=== PATIENT | female | born 2000 | race Two or more races ===

== ENCOUNTER 2019-01-05 16:23 | Inpatient (IN) ==
[2019-01-05 17:50] LABS: Appearance Urine Clear (Clear); Bacteria Urine Automated Negative (Negative); Bilirubin Urine Negative (Negative); Blood Urine Trace (Negative); Cast Urine Automated 0 /lpf (0-5); Color Urine Yellow; Glucose Urine UA Negative (Negative); Ketones Urine 1+ (Negative); Leukocyte Esterase Urine Negative (Negative); Nitrite Urine Negative (Negative); Protein Urine Negative (Negative); RBC Urine Automated 0-4 /hpf (0-4); Specific Gravity Urine 1.017 (1.000-1.030); Urobilinogen Urine Negative (Negative); WBC Urine Automated 0 /hpf (0-5)
[2019-01-05 18:18] LABS: Amphetamines+Metham, Urine Neg (Neg); Barbiturates, Urine Neg (Neg); Benzodiazepine, Urine Neg (Neg); Cocaine, Urine Neg (Neg); MDMA (Ecstacy), Urine Neg (Neg); Methadone, Urine Neg (Neg); Opiate, Urine Neg (Neg); Phencyclidine, Urine Neg (Neg)
[2019-01-05 18:21] LABS: Basophils # (auto) 0.02 K/uL (0-0.2); Basophils % (auto) 0.3 %; Eosinophils # (auto) 0.03 K/uL (0-0.5); Eosinophils % (auto) 0.4 %; Hematocrit (blood only) 40.1 % (37-47); Hemoglobin 14.1 g/dL (12.0-16.0); Immature Granulocytes # (auto) 0.01 K/uL (0.00-0.02); Immature Granulocytes % (auto) 0.1 %; Lymphocytes # (auto) 1.04 K/uL (1.2-3.4); Mean Corpuscular Hgb Conc 35.2 g/dL (32-36); Mean Corpuscular Volume 90.1 fL (80-100); Mean Platelet Volume 10.9 fL (7.4-10.4); Monocytes # (auto) 0.47 K/uL (0.11-0.59); Monocytes % (auto) 6.3 %; Neutrophils # (auto) 5.88 K/uL (1.4-6.5); Neutrophils % (auto) 78.9 %; Platelet Count 194 K/uL (130-400); RDW Coefficient of Variation 13.1 % (11.5-14.5); RDW Standard Deviation 43.5 fL (36.4-46.3); Red Blood Count 4.45 M/uL (4.2-5.4); White Blood Count 7.45 K/uL (4.8-10.8)
[2019-01-05 18:41] LABS: Acetaminophen < 2 ug/ml (10-30); Albumin Level 4.5 gm/dl (3.4-5.0); BUN Creatinine Ratio 12.3 (10-20); Calcium 9.6 mg/dl (8.5-10.1); Est GFR (African American) 99.9; Est GFR (Non-African American) 86.2; Potassium 3.8 mmol/L (3.5-5.1)
[2019-01-05 18:42] LABS: Salicylate 2.1 mg/dl (2.8-20)
[2019-01-05 18:51] LABS: Albumin Globulin Ratio 1.1 (0.9-2); Bilirubin,Total 0.3 mg/dl (0.2-1); Total Protein 8.5 gm/dl (6.4-8.2)
--- NOTE | 2019-01-05 19:55 | Emergency Department Note ---
Entered by Rashi Bonilla acting as a scribe for Sundeep Johnson DO History of Present Illness General Chief complaint: Mental Health Evaluation Stated complaint: DEPRESSION SX Source: patient Limitations: no limitations History of Present Illness Provider complaint: suicidal ideation Onset (ago): year(s) (2) Location: head (mental health) Pain Consistency: + other (worsening) Quality: + other (suicidal thoughts) Associated symptoms: + denies other symptoms Treatments prior to arrival: none The patient is a 18 year old female who presents to the Emergency Room with complaints of worsening suicidal ideations. The patient states that she has been dealing with depression and suicidal ideation for the past 6 years. She feels as though her suicidal thoughts have worsened over the past 2 years. She states that she "does not want to exist" and "doesn't want to be here." The patient confirms that she has never acted on her thoughts, but recently the thoughts and depression had "inhibited my daily function." She admits that she has been researching ways to kill herself on line. The patient adds that she read that she could inhale a gas in the chemistry lab that would kill her painlessly in her sleep, and she also researched overdosing on narcotics. She has thought about overdosing on narcotics in the past 3 days. The patient denies any homicidal ideations or hallucinations. Home Medications Home Medications Medication Instructions Recorded Confirmed Type No Known Home Medications 01/05/19 01/05/19 History Allergies Allergy/AdvReac Type Severity Reaction Status Date / Time No Known Allergies Allergy Unverified 01/05/19 17:18 Past Med/Surg History Medical History Depression Social History Feels Safe at Home: Yes Smoking Status: Never smoker Review of Systems See HPI for pertinent positives & negatives. and A total of 10 systems reviewed and were otherwise negative Physical Exam Vital Signs Vital Signs - 24 hr 01/05/19 17:01 01/05/19 18:19 Temperature 37 C Temperature Source Oral Sepsis Recent Fever Within 48 Hours No Sepsis Action Taken by Nursing No Action Required Pulse Rate 87 Pulse Rate [Finger] 71 Pulse Rhythm [Finger] Regular Respiratory Rate 16 18 Respiratory Effort / Characteristics Non-Labored Respiratory Depth Normal Blood Pressure 125/78 Blood Pressure [Left Arm] 114/60 Blood Pressure Mean 93 Blood Pressure Mean [Left Arm] 78 Blood Pressure Position Sitting Pulse Oximetry 97 95 Oxygen Delivery Method Room Air Room Air GENERAL: Sitting up in bed, alert, well appearing, well nourished, no distress, non-toxic EYE EXAM: normal conjunctiva. OROPHARYNX: no exudate, no erythema, lips, buccal mucosa, and tongue normal and mucous membranes are moist NECK: supple, no nuchal rigidity, no adenopathy, non-tender LUNGS: Clear to auscultation. Normal chest wall mechanics HEART: no murmurs, S1 normal and S2 normal ABDOMEN: abdomen soft, non-tender, normo-active bowel, sounds, no masses, no rebound or guarding. BACK: Back is symmetrical on inspection and there is no deformity, no midline tenderness, no CVA tenderness. SKIN: no rashes and no bruising UPPER EXTREMITIES: upper extremities are grossly normal. LOWER EXTREMITIES: No pitting edema. NEURO EXAM: Normal sensorium, cranial nerves II-XII grossly intact, normal speech, no gross weakness of arms, no gross weakness of legs. PSYCH: Admits to suicidal ideation with plan to overdose or inhale gas. Course ED COURSE: Vital signs were reviewed and showed normal vitals. The patients medical record was reviewed The above diagnostic studies were performed and reviewed. ED treatments and interventions as stated above. 1722: The patient was evaluated in room A8. A complete history and physical examination was performed. []: Upon reevaluation, the patient is []. I discussed my findings with the [patient] and [] understands and agrees with the treatment plan. Based on the patients age, coexisting illnesses, exam and lab findings the decision to treat as an [inpatient][outpatient] was made. The patient remained stable while under my care. [The patient appeared well at the time of discharge.] [The patient will be evaluated for further management.] Medical Decision Making Differential Diagnosis Differential diagnosis: Etiologies such as psychiatric disorder, infection, hypoglycemia, electrolyte abnormalities, cardiac sources, intracerebral event, toxicological process, neurologic disorder, as well as others were entertained. Medical Records Attestation: I reviewed the patient's medical records. Home Medications Current Medication List: was personally reviewed by me Laboratory Data Attestation: I reviewed the patient's lab results. Result diagrams: 01/05/19 17:55 01/05/19 17:55 Lab Results 01/05/19 01/05/19 01/05/19 Range/Units 17:29 17:29 17:29 WBC (4.8-10.8) K/uL RBC (4.2-5.4) M/uL Hgb (12.0-16.0) g/dL Hct (37-47) % MCV (80-100) fL MCH (25-34) pg MCHC (32-36) g/dL RDW Std Deviation (36.4-46.3) fL RDW Coeff of Lida (11.5-14.5) % Plt Count (130-400) K/uL MPV (7.4-10.4) fL Immature Gran % (Auto) % Neut % (Auto) % Lymph % (Auto) % [place] % (Auto) % Eos % (Auto) % Baso % (Auto) % Immature Gran # (Auto) (0.00-0.02) K/uL Neut # (Auto) (1.4-6.5) K/uL Lymph # (Auto) (1.2-3.4) K/uL [place] # (Auto) (0.11-0.59) K/uL Eos # (Auto) (0-0.5) K/uL Baso # (Auto) (0-0.2) K/uL Sodium (136-145) mmol/L Potassium (3.5-5.1) mmol/L Chloride (98-107) mmol/L Carbon Dioxide (21-32) mmol/L Anion Gap (3-11) BUN (7-18) mg/dl Creatinine (0.6-1.2) mg/dl Est Cr Clr Drug Dosing ml/min Est GFR ( Amer) Est GFR (Non-Af Amer) BUN/Creatinine Ratio (10-20) Glucose (70-99) mg/dl Calcium (8.5-10.1) mg/dl Total Bilirubin (0.2-1) mg/dl AST (15-37) U/L ALT (12-78) U/L Alkaline Phosphatase (45-117) U/L Total Protein (6.4-8.2) gm/dl Albumin (3.4-5.0) gm/dl Globulin (2.5-4.0) gm/dl Albumin/Globulin Ratio (0.9-2) TSH (0.300-4.500) uIu/ml Urine Color Yellow Urine Appearance Clear (Clear) Urine pH 6.0 (4.5-7.5) Ur Specific [place] 1.017 (1.000-1.030) Urine Protein Negative (Negative) Urine Glucose (UA) Negative (Negative) Urine Ketones 1+ H (Negative) Urine Blood Trace H (Negative) Urine Nitrite Negative (Negative) Urine Bilirubin Negative (Negative) Urine Urobilinogen Negative (Negative) Ur Leukocyte Esterase Negative (Negative) Urine WBC (Auto) 0 (0-5) /hpf Urine RBC (Auto) 0-4 (0-4) /hpf U Hyaline Cast (Auto) 0 (0-5) /lpf U Epithel Cells (Auto) 10-20 H (0-5) /lpf Urine Bacteria (Auto) Negative (Negative) POC Ur Test NEG (NEG) Salicylates (2.8-20) mg/dl Urine Opiates Screen Neg (Neg) Ur Methadone, Qual Neg (Neg) Acetaminophen (10-30) ug/ml Urine Barbiturates Neg (Neg) Ur Phencyclidine (PCP) Neg (Neg) U Amphetamin/Meth Scrn Neg (Neg) MDMA (Ecstasy) Screen Neg (Neg) U Benzodiazepines Scrn Neg (Neg) Ur Cocaine Metabolite Neg (Neg) U Marijuana (THC) Screen Neg (Neg) Ethyl Alcohol mg/dL (0-3) mg/dl 01/05/19 01/05/19 01/05/19 Range/Units 17:55 17:55 17:55 WBC 7.45 (4.8-10.8) K/uL RBC 4.45 (4.2-5.4) M/uL Hgb 14.1 (12.0-16.0) g/dL Hct 40.1 (37-47) % MCV 90.1 (80-100) fL MCH 31.7 (25-34) pg MCHC 35.2 (32-36) g/dL RDW Std Deviation 43.5 (36.4-46.3) fL RDW Coeff of Lida 13.1 (11.5-14.5) % Plt Count 194 (130-400) K/uL MPV 10.9 H (7.4-10.4) fL Immature Gran % (Auto) 0.1 % Neut % (Auto) 78.9 % Lymph % (Auto) 14.0 % [place] % (Auto) 6.3 % Eos % (Auto) 0.4 % Baso % (Auto) 0.3 % Immature Gran # (Auto) 0.01 (0.00-0.02) K/uL Neut # (Auto) 5.88 (1.4-6.5) K/uL Lymph # (Auto) 1.04 L (1.2-3.4) K/uL [place] # (Auto) 0.47 (0.11-0.59) K/uL Eos # (Auto) 0.03 (0-0.5) K/uL Baso # (Auto) 0.02 (0-0.2) K/uL Sodium 139 (136-145) mmol/L Potassium 3.8 (3.5-5.1) mmol/L Chloride 109 H (98-107) mmol/L Carbon Dioxide 23 (21-32) mmol/L Anion Gap 7.0 (3-11) BUN 12 (7-18) mg/dl Creatinine 0.95 (0.6-1.2) mg/dl Est Cr Clr Drug Dosing 85.0 ml/min Est GFR ( Amer) 99.9 Est GFR (Non-Af Amer) 86.2 BUN/Creatinine Ratio 12.3 (10-20) Glucose 85 (70-99) mg/dl Calcium 9.6 (8.5-10.1) mg/dl Total Bilirubin 0.3 (0.2-1) mg/dl AST 20 (15-37) U/L ALT 17 (12-78) U/L Alkaline Phosphatase 48 (45-117) U/L Total Protein 8.5 H (6.4-8.2) gm/dl Albumin 4.5 (3.4-5.0) gm/dl Globulin 4.0 (2.5-4.0) gm/dl Albumin/Globulin Ratio 1.1 (0.9-2) TSH 1.240 (0.300-4.500) uIu/ml Urine Color Urine Appearance (Clear) Urine pH (4.5-7.5) Ur Specific [place] (1.000-1.030) Urine Protein (Negative) Urine Glucose (UA) (Negative) Urine Ketones (Negative) Urine Blood (Negative) Urine Nitrite (Negative) Urine Bilirubin (Negative) Urine Urobilinogen (Negative) Ur Leukocyte Esterase (Negative) Urine WBC (Auto) (0-5) /hpf Urine RBC (Auto) (0-4) /hpf U Hyaline Cast (Auto) (0-5) /lpf U Epithel Cells (Auto) (0-5) /lpf Urine Bacteria (Auto) (Negative) POC Ur Test (NEG) Salicylates 2.1 L (2.8-20) mg/dl Urine Opiates Screen (Neg) Ur Methadone, Qual (Neg) Acetaminophen < 2 L (10-30) ug/ml Urine Barbiturates (Neg) Ur Phencyclidine (PCP) (Neg) U Amphetamin/Meth Scrn (Neg) MDMA (Ecstasy) Screen (Neg) U Benzodiazepines Scrn (Neg) Ur Cocaine Metabolite (Neg) U Marijuana (THC) Screen (Neg) Ethyl Alcohol mg/dL (0-3) mg/dl 01/05/19 Range/Units 17:55 WBC (4.8-10.8) K/uL RBC (4.2-5.4) M/uL Hgb (12.0-16.0) g/dL Hct (37-47) % MCV (80-100) fL MCH (25-34) pg MCHC (32-36) g/dL RDW Std Deviation (36.4-46.3) fL RDW Coeff of Lida (11.5-14.5) % Plt Count (130-400) K/uL MPV (7.4-10.4) fL Immature Gran % (Auto) % Neut % (Auto) % Lymph % (Auto) % [place] % (Auto) % Eos % (Auto) % Baso % (Auto) % Immature Gran # (Auto) (0.00-0.02) K/uL Neut # (Auto) (1.4-6.5) K/uL Lymph # (Auto) (1.2-3.4) K/uL [place] # (Auto) (0.11-0.59) K/uL Eos # (Auto) (0-0.5) K/uL Baso # (Auto) (0-0.2) K/uL Sodium (136-145) mmol/L Potassium (3.5-5.1) mmol/L Chloride (98-107) mmol/L Carbon Dioxide (21-32) mmol/L Anion Gap (3-11) BUN (7-18) mg/dl Creatinine (0.6-1.2) mg/dl Est Cr Clr Drug Dosing ml/min Est GFR ( Amer) Est GFR (Non-Af Amer) BUN/Creatinine Ratio (10-20) Glucose (70-99) mg/dl Calcium (8.5-10.1) mg/dl Total Bilirubin (0.2-1) mg/dl AST (15-37) U/L ALT (12-78) U/L Alkaline Phosphatase (45-117) U/L Total Protein (6.4-8.2) gm/dl Albumin (3.4-5.0) gm/dl Globulin (2.5-4.0) gm/dl Albumin/Globulin Ratio (0.9-2) TSH (0.300-4.500) uIu/ml Urine Color Urine Appearance (Clear) Urine pH (4.5-7.5) Ur Specific [place] (1.000-1.030) Urine Protein (Negative) Urine Glucose (UA) (Negative) Urine Ketones (Negative) Urine Blood (Negative) Urine Nitrite (Negative) Urine Bilirubin (Negative) Urine Urobilinogen (Negative) Ur Leukocyte Esterase (Negative) Urine WBC (Auto) (0-5) /hpf Urine RBC (Auto) (0-4) /hpf U Hyaline Cast (Auto) (0-5) /lpf U Epithel Cells (Auto) (0-5) /lpf Urine Bacteria (Auto) (Negative) POC Ur Test (NEG) Salicylates (2.8-20) mg/dl Urine Opiates Screen (Neg) Ur Methadone, Qual (Neg) Acetaminophen (10-30) ug/ml Urine Barbiturates (Neg) Ur Phencyclidine (PCP) (Neg) U Amphetamin/Meth Scrn (Neg) MDMA (Ecstasy) Screen (Neg) U Benzodiazepines Scrn (Neg) Ur Cocaine Metabolite (Neg) U Marijuana (THC) Screen (Neg) Ethyl Alcohol mg/dL < 3.0 (0-3) mg/dl Blood Pressure Blood Pressure Findings: Normal blood pressure [facility] Narrative Patient is a 18-year-old female who presents the ER with a past medical history of depression which is been present for the past 6 years. Suicidal ideations have been worsening over the past 2 years. Thoughts of self-harm have been significantly worsening over the past week. She has been having inability to focus. She now notes that the suicidal thoughts are persistent and unrelenting. She has researched ways which she would kill herself which include by narcotic overdose or gas inhalation. She notes that she did the research on this for 5 months ago but these to have stuck in her mind. Labs were obtained and showed no significant leukocytosis or anemia. BMP along with LFTs bilirubin and TSH was unremarkable. UA was negative. Tox was unremarkable. Alcohol was negative. Patient was medically cleared. She was updated bedside. Currently bed searching after patient was evaluated by her psychiatric care managers. Patient was signed out to Dr. Be at the change of shift awaiting placement on a 201. Impression & Plan Mood disorder, Suicidal ideation Discharge Plan Visit Data Chief Complaint: Mental Health Evaluation Stated Complaint: DEPRESSION SX ED Provider: Sundeep Johnson Discharge Problem: Mood disorder, Suicidal ideation Patient Disposition: Still a Patient Forms Stand Alone Forms: My [facility] Prescriptions Prescriptions: No Action No Known Home Medications RF: 0 Referrals Referrals: [facility] [Primary Care Provider] - The scribe's documentation has been prepared under my direction and personally reviewed by me in its entirety. I confirm that the note above accurately reflects all work, treatment, procedures, and medical decision making performed by me.
[2019-01-05] MEDS ORDERED: SODIUM CHLORIDE 0.65% NA SOLN 45 ML (OCEAN) PRN (21:12)
[2019-01-05] MEDS ORDERED: ACETAMINOPHEN 325 MG TAB PO PRN (21:12)
[2019-01-05] MEDS ORDERED: ALUMINUM/MAGNESIUM SUSP 30 ML UDC PO PRN (21:12)
[2019-01-05] MEDS ORDERED: BISMUTH SUBSALICYLATE PER ML OMNICELL CHARGE PO PRN (21:12)
[2019-01-05] MEDS ORDERED: MAGNESIUM HYDROXIDE SUSP 30 ML UDC PO PRN (21:12)
[2019-01-06] MEDS ORDERED: INFLUENZA VIRUS QUAD VACCINE 0.5 ML SYR IM ONE (06:00)
[2019-01-06] MEDS ORDERED: INFLUENZA ADMINISTRATION CHARGE ONE (06:00)
--- NOTE | 2019-01-06 09:05 | History & Physical ---
Date of Service January 06, 2019 Impression / Recommendations Impression 18-year-old female admitted voluntarily for inpatient psychiatric treatment due to worsening depression and SI. Recent SI and depressive episodes have been associated with patient completing research on ways in which she could end her life. Long history of symptoms is reported, however, patient has not received treatment previously. Pt attempted to contact [facility] several times, but would cancel appointments when she began to feel better. Discussed recommendation for initiation of antidepressant medications. Education and counseling provided on SSRIs and the different options were reviewed. Given disordered eating behaviors, suggested fluoxetine, which patient is agreeable with. Risks, benefits, and possible adverse effects were discussed - including but not limited to black box warning regarding risk of suicidality in the adolescent population. Pt is agreeable to beginning medication and is willing for a therapy referral. Inpatient mental health hospitalization is medically necessary given severity and duration of untreated illness and the fact that without intervention the patient remains at high risk of harm to herself is discharged prematurely. Dr. Xiomara Malcolm was directly involved in review and discussion of the patient's case and participated in medical decision making regarding treatment recommendations. (1) Suicidal ideation: 01/06 - Admitted to a locked inpatient behavioral health unit, on q15 minute safety checks - Encourage medication initiation/adjustments as indicated - Encourage participation in group and recreational therapies - Gather collateral information from outpatient providers - Suggest family meeting to involve outpatient supports in safety planning - Arrange appropriate aftercare (2) Depression: 01/06 - Initiate fluoxetine 20mg one dose now, 20mg qAM scheduled starting tomorrow morning. Titrate as needed/tolerated - Will need referral to outpatient providers following discharge - Identify supports to involve in treatment and discharge planning Depression Type: major depressive disorder Major depression episode severity: severe Major depression recurrence: recurrent Psychotic features: without psychotic features (3) Disordered eatin/28 - pt admits to several days of restriction at a time, associated with small windows of nutritional intake, often to the point of binging - observe eating habits on the unit with encouragement to eat regularly throughout the day - no recent history of purging, so will not order for room to be locked at this time Inventory Assets Strengths: willingness for treatment, Needs: medication and therapeutic interventions to improve mood, development of healthy and effective coping strategies Risk Factors Assessment Male: No : No Do You Have Access To A Gun?: No Health Problems: No Mental Health Diagnoses: No (none prior to admission) Substance Use Disorders: No Previous Attempt: No Family History of Suicide: No Previous Psychiatric Hospitalization: No Hopelessness: Yes Smoker: No Protective Factors Assessment Buddhism Beliefs: No : No Responsible for Young Children: No Employed: Yes Stable Relationships: No Supportive Family: Yes Psychiatric History Identifying Data ANN-MARIE CAO is a 18-year-old F who currently lives in [place], with her roommate. Pt has a history of depressive symptoms and suicidal ideation which has not been previously addressed, and was admitted on 01/05/19 21:12 on a 201 voluntary commitment for worsening depression and SI with various "painless" plans having been researched. Chief Complaint "Yesterday morning I decided to talk to [facility]. 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 Pt reports having called [facility] yesterday to report worsening depression and SI. After her initial assessment, an in person interview was completed. Pt was then encouraged to consider inpatient treatment due to severity of condition. Pt was agreeable and brought to the ED by police voluntarily. Pt states she has called [facility] for an appointment "5 times before", but had always cancelled her appointments due to "I start feeling better, I think I don't need it anymore." Pt states, "It went from only me knowing, keep ing it to myself, to two people, and now a lot more." Pt reports depressive symptoms for the past 6 years. The last 2 years her symptoms have become, "more consistent, more life concerning." Pt admits that for the past two years she has been researching ways to end her life painlessly. She admits to doing this "under the influence of my depressive episode." She denies any acts of furtherance before the depressive episode resolves. Pt states that her suicidality since the beginning of the school year has been "a consistent thought. I can be content and with my family or friends and still think, 'what if I wasn't here?'" Pt reports, "a normal mood for me is 'somber', it takes a catalyst for me to be happy." Pt reports depressive symptoms of low mood, decreased energy, limited motivation beyond going to classes, and increased desire to sleep and retreat to bed. She admits to more frequent headaches, difficulty concentrating and tension as well. During these episodes, the patient states she has "involuntary self harm behaviors" such has banging her head off of finnegan, using sharp tweezers to scratch her skin "but so it doesn't leave a yue", or choking herself until the point just prior to asphyxiation. Depressive episodes are accompanied by irritability and occasional hopelessness. Pt does not report symptoms consistent with a clear bipolar presentation, but does admit to "really rare" phases of "offering to do things for people and spreading myself too thin", excessive spending, and an episode of "signing up to join 3 intramural teams all on the same day." These phases last "maybe a few hours, but something really little always triggers me back down." Pt denies any clinically significant symptoms of anxiety or panic. She does report a significant history and active behaviors of "binging and starving myself". Pt states she is consistently on a diet to restrict herself - often for 2 days at a time, reporting her longest period of restriction to be 7 days. Pt states she takes "intermittent fasting to the extreme", often only eating between 6-8pm." When patient does permit herself to eat, she often binges with a large meal. She admits to a history of purging behavior, but with no episodes in the past year. Pt denies HI, A/V hallucinations, paranoia, OCD, PTSD, and other specific psychiatric symptoms. Past Psychiatric History Previous Psych History: Pt admits to a 6-year history of depressive symptoms, with worsening in the past 2 years. She has not reached out for, or received any form of psychiatric treatment. Appointments scheduled with [facility] were typically cancelled before she could become an established patient due to reported improvement in symptoms. She denies previous therapy or medication trials Current Psychiatric Diagnosis: Major Depressive Disorder Do You Have Access To A Gun?: No Past Medication Trials: No previous medication trials Past Head Trauma/Neuro History History of Concussion/Seizure: No Allergies Allergy/AdvReac Type Severity Reaction Status Date / Time No Known Allergies Allergy Unverified 01/05/19 17:18 Home Medications Home Medications Medication Instructions Recorded Confirmed Type No Known Home Medications 01/05/19 01/05/19 History Family History Family History of: Anxiety Family Mental Health History Comment: sister - anxiety and depersonalization disorder Alcohol History Hx of Alcohol Use Over the Past 12 Months: Yes (1x/week, 3-4 drinks "socially") AUDIT Total Score: 4 Smoking Use Have You Smoked or Used Tobacco Products in the Last 30 Days: No Smoking Status: Never smoker Substance History Hx of Prescription Med Misuse Over the Past 12 Months: No Hx of Over the Counter Med Misuse Over the Past 12 Months: No Hx of Inhalent Misuse Over the Past 12 Months: No Hx of Organic Substance Use Over the Past 12 Months: No Hx of Illegal Substances/Street Drug Use Over Past 12 Months: No Problems as a Result of Past Substance Use: None Identified Personal History Living Arrangements: APartment (with roommate) Childhood: Family resides in [place] - parents , younger sister in high school. Older brother currently attending medical school. 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) Number Of Children: N/A Beliefs That Will Affect Care: None Current Legal Problems: No Hx Legal Problems: No Hx Traumatic Life Events: No Patient History Medical History Depression Social History Preferred Language: Arabic Communication Ability: Effective Exchange Trouble Shooter Required: No Beliefs That Will Affect Care: None Feels Safe at Home: Yes Smoking Status: Never smoker Review of Systems Constitutional: reports fatigue and low energy Cardiovascular: denied Respiratory: denied Gastrointestinal: denied Neurological: reports frequent headaches Musculoskeletal: reports frequent neck tension Psychiatric: denies symptoms other than stated above Total of at least 10 systems reviewed, pertinent positives as above and in HPI. Physical Exam Psychiatric Orientation: alert, oriented x 3 and cooperative Apperance: appropriately dressed, appropriately groomed and appeared stated age Petite and thin appearing female, appropriately groomed, hair pulled back in a neat bun, wearing glasses. Observed to be sitting in no acute distress. Eye Contact: good eye contact Motor Behavior: steady gait and station and no abnormal motor movements Speech: normal rate/rhythm/volume of speech Affect: + depressed affect Mood: + depressed mood ("my normal mood would be 'somber'" and "in a bad depressive episode") Thought Process: goal directed thought process, linear/logical thought process and clear/coherent thought process Thought Content: reality based without delusions Suicidal Thoughts: + reports suicidal thoughts and + reports suicidal plan (has researched "painless" plans, including OD on narcotics or inhale gas) Homicidal Thoughts: denies homicidal thoughts Hallucinations: no auditory hallucinations and no visual hallucinations Cognition: recent memory grossly intact, remote memory grossly intact, attention grossly intact and language grossly intact Estimated Intelligence: consistent with education level Insight: + impaired insight Judgement: + impaired judgement Vital Signs (Past 24 Hours) Last Vital Signs Temp 36.8 C 01/06/19 07:02 Pulse 73 01/06/19 07:02 Resp 16 01/06/19 07:02 BP 124/73 01/06/19 07:02 Pulse Ox 95 01/05/19 18:19 A physical exam was performed in the ER prior to admission to the unit by Dr. Sundeep Johnson DO. I accept that physical as correct/medical clearance for the inpatient physical exam. Results & Data Laboratory Results Laboratory Results - last 24 hr 01/05/19 01/05/19 01/05/19 17:29 17:29 17:29 WBC RBC Hgb Hct MCV MCH MCHC RDW Std Deviation RDW Coeff of Lida Plt Count MPV Immature Gran % (Auto) Neut % (Auto) Lymph % (Auto) [place] % (Auto) Eos % (Auto) Baso % (Auto) Immature Gran # (Auto) Neut # (Auto) Lymph # (Auto) [place] # (Auto) Eos # (Auto) Baso # (Auto) Sodium Potassium Chloride Carbon Dioxide Anion Gap BUN Creatinine Est Cr Clr Drug Dosing Est GFR ( Amer) Est GFR (Non-Af Amer) BUN/Creatinine Ratio Glucose Calcium Total Bilirubin AST ALT Alkaline Phosphatase Total Protein Albumin Globulin Albumin/Globulin Ratio TSH Urine Color Yellow Urine Appearance Clear Urine pH 6.0 Ur Specific [place] 1.017 Urine Protein Negative Urine Glucose (UA) Negative Urine Ketones 1+ H Urine Blood Trace H Urine Nitrite Negative Urine Bilirubin Negative Urine Urobilinogen Negative Ur Leukocyte Esterase Negative Urine WBC (Auto) 0 Urine RBC (Auto) 0-4 U Hyaline Cast (Auto) 0 U Epithel Cells (Auto) 10-20 H Urine Bacteria (Auto) Negative POC Ur Test NEG Salicylates Urine Opiates Screen Neg Ur Methadone, Qual Neg Acetaminophen Urine Barbiturates Neg Ur Phencyclidine (PCP) Neg U Amphetamin/Meth Scrn Neg MDMA (Ecstasy) Screen Neg U Benzodiazepines Scrn Neg Ur Cocaine Metabolite Neg U Marijuana (THC) Screen Neg Ethyl Alcohol mg/dL 01/05/19 01/05/19 01/05/19 17:55 17:55 17:55 WBC 7.45 RBC 4.45 Hgb 14.1 Hct 40.1 MCV 90.1 MCH 31.7 MCHC 35.2 RDW Std Deviation 43.5 RDW Coeff of Lida 13.1 Plt Count 194 MPV 10.9 H Immature Gran % (Auto) 0.1 Neut % (Auto) 78.9 Lymph % (Auto) 14.0 [place] % (Auto) 6.3 Eos % (Auto) 0.4 Baso % (Auto) 0.3 Immature Gran # (Auto) 0.01 Neut # (Auto) 5.88 Lymph # (Auto) 1.04 L [place] # (Auto) 0.47 Eos # (Auto) 0.03 Baso # (Auto) 0.02 Sodium 139 Potassium 3.8 Chloride 109 H Carbon Dioxide 23 Anion Gap 7.0 BUN 12 Creatinine 0.95 Est Cr Clr Drug Dosing 85.0 Est GFR ( Amer) 99.9 Est GFR (Non-Af Amer) 86.2 BUN/Creatinine Ratio 12.3 Glucose 85 Calcium 9.6 Total Bilirubin 0.3 AST 20 ALT 17 Alkaline Phosphatase 48 Total Protein 8.5 H Albumin 4.5 Globulin 4.0 Albumin/Globulin Ratio 1.1 TSH 1.240 Urine Color Urine Appearance Urine pH Ur Specific [place] Urine Protein Urine Glucose (UA) Urine Ketones Urine Blood Urine Nitrite Urine Bilirubin Urine Urobilinogen Ur Leukocyte Esterase Urine WBC (Auto) Urine RBC (Auto) U Hyaline Cast (Auto) U Epithel Cells (Auto) Urine Bacteria (Auto) POC Ur Test Salicylates 2.1 L Urine Opiates Screen Ur Methadone, Qual Acetaminophen < 2 L Urine Barbiturates Ur Phencyclidine (PCP) U Amphetamin/Meth Scrn MDMA (Ecstasy) Screen U Benzodiazepines Scrn Ur Cocaine Metabolite U Marijuana (THC) Screen Ethyl Alcohol mg/dL 01/05/19 17:55 WBC RBC Hgb Hct MCV MCH MCHC RDW Std Deviation RDW Coeff of Lida Plt Count MPV Immature Gran % (Auto) Neut % (Auto) Lymph % (Auto) [place] % (Auto) Eos % (Auto) Baso % (Auto) Immature Gran # (Auto) Neut # (Auto) Lymph # (Auto) [place] # (Auto) Eos # (Auto) Baso # (Auto) Sodium Potassium Chloride Carbon Dioxide Anion Gap BUN Creatinine Est Cr Clr Drug Dosing Est GFR ( Amer) Est GFR (Non-Af Amer) BUN/Creatinine Ratio Glucose Calcium Total Bilirubin AST ALT Alkaline Phosphatase Total Protein Albumin Globulin Albumin/Globulin Ratio TSH Urine Color Urine Appearance Urine pH Ur Specific [place] Urine Protein Urine Glucose (UA) Urine Ketones Urine Blood Urine Nitrite Urine Bilirubin Urine Urobilinogen Ur Leukocyte Esterase Urine WBC (Auto) Urine RBC (Auto) U Hyaline Cast (Auto) U Epithel Cells (Auto) Urine Bacteria (Auto) POC Ur Test Salicylates Urine Opiates Screen Ur Methadone, Qual Acetaminophen Urine Barbiturates Ur Phencyclidine (PCP) U Amphetamin/Meth Scrn MDMA (Ecstasy) Screen U Benzodiazepines Scrn Ur Cocaine Metabolite U Marijuana (THC) Screen Ethyl Alcohol mg/dL < 3.0 Current Inpatient Medications Current Inpatient Medications: Current Inpatient Medications Acetaminophen (Tylenol) 650 mg PO Q4H PRN PRN Reason: Headache or Minor Fever Stop: 02/04/19 21:11 Al Hydrox/Mg Hydrox/Simethicone (Maalox) 30 ml PO Q4H PRN PRN Reason: GI Upset Stop: 02/04/19 21:11 Bismuth Subsalicylate (Kaopectate) 15 ml PO PRN PRN PRN Reason: Loose Stool Stop: 02/04/19 21:11 Hydroxyzine HCl (Vistaril) 50 mg PO HSZ PRN PRN Reason: Insomnia Stop: 02/04/19 21:11 Hydroxyzine HCl (Vistaril) 25 mg PO Q4H PRN PRN Reason: Anxiety Stop: 02/04/19 21:11 Magnesium Hydroxide (Milk Of Magnesia) 30 ml PO DAILY PRN PRN Reason: Heartburn Stop: 02/04/19 21:11 Sodium Chloride ([place] Nasal) 1 - 2 sprays NA PRN PRN PRN Reason: Nasal Dryness/Congestion Stop: 02/04/19 21:11 CPT Code CPT Code Initial Hospital Care: [id number]
[2019-01-06] MEDS ORDERED: FLUOXETINE HCL 20 MG CAP PO ONE (12:15)
--- NOTE | 2019-01-06 16:50 | Emergency Department Note ---
ED Visit Note The patient was taken in signout from Dr. Sundeep Johnson at the change of shift. Please see that note for details. The patient was pending voluntary psychiatric placement. The patient was accepted to [address] [place] [address]. .
[2019-01-07] MEDS: FLUOXETINE HCL 20 MG CAP PO SCH (08:58)
--- NOTE | 2019-01-07 11:46 | Psychiatric Progress Note ---
Date of Service January 07, 2019 Impression / Recommendations Impression Pt reports mild improvement in mood. Reports feeling "talkative". At this time, her reports do not sound consistent with activation due to initiation of an SSRI, but observation would be recommended. Pt denies side effects and is agreeable to titration of fluoxetine as needed. We discussed recommendation to involve parents in a family meeting, given reported differences in communication style between the patient and her father - explained potential benefit of having a social and human services assistant navigate the conversation with her on the unit, rather than doing this on her own. She is willing to consider. Agreeable to meeting with roommates which will need to be scheduled. (1) Suicidal ideation: 01/06 - Admitted to a locked inpatient behavioral health unit, on q15 minute safety checks - Encourage medication initiation/adjustments as indicated - Encourage participation in group and recreational therapies - Gather collateral information from outpatient providers - Suggest family meeting to involve outpatient supports in safety planning - Arrange appropriate aftercare (2) Depression: 01/06 - Initiate fluoxetine 20mg one dose now, 20mg qAM scheduled starting tomorrow morning. Titrate as needed/tolerated - Will need referral to outpatient providers following discharge - Identify supports to involve in treatment and discharge planning 01/07 - Continue current medication regimen, consider titration of fluoxetine if continues to tolerate - Willing for meeting with roommates, unsure if agreeable to a meeting with her parents at this time - Will require outpatient providers for therapy and medication management (3) Disordered eatin/28 - pt admits to several days of restriction at a time, associated with small windows of nutritional intake, often to the point of binging - observe eating habits on the unit with encouragement to eat regularly throughout the day - no recent history of purging, so will not order for room to be locked at this time 01/07 - Pt reported to be eating meals regularly on the unit, no evidence of disordered eating behavior observed Inventory Assets Strengths: willingness for treatment, Needs: medication and therapeutic interventions to improve mood, development of healthy and effective coping strategies Risk Factors Assessment Male: No : No Do You Have Access To A Gun?: No Health Problems: No Mental Health Diagnoses: No (none prior to admission) Substance Use Disorders: No Previous Attempt: No Family History of Suicide: No Previous Psychiatric Hospitalization: No Hopelessness: Yes Smoker: No Protective Factors Assessment [employer] Beliefs: No : No Responsible for Young Children: No Employed: Yes Stable Relationships: No Supportive Family: Yes Interval History Identifying Information ANN-MARIE CAO is a 18-year-old F who currently lives in [place], with her roommate. Pt has a history of depressive symptoms and suicidal ideation which has not been previously addressed, and was admitted on 01/05/19 21:12 on a 201 voluntary commitment for worsening depression and SI with various "painless" plans having been researched. Information gathered from the patient is considered to be reliable. Chief Complaint "Good, I guess I would say - 'talkative'." Review of Systems Notes Constitutional: reports having a "nightmare" last evening, unusual for her but not particularly distressing Cardiovascular: denied Respiratory: denied Gastrointestinal: denied Neurological: denied Psychiatric: denies symptoms other than stated above Total of at least 10 systems reviewed, pertinent positives as above and in HPI. Sleep Information Total Hours of Sleep: 6.25 Meal Information Percent Meal Consumed - Breakfast: 60 Percent Meal Consumed - Lunch: 100 Percent Meal Consumed - Dinner: 100 Subjective Subjective Patient was seen & assessed and interval progress reviewed with Treatment Team. Staff report the patient received a visit from roommates last evening. She rated her mood a "7 and content". Pt was seen today to assess progress since admission. She reports mild improvement in mood and is feeling today is "going much quicker than yesterday, yesterday seemed so long." She describes her mood as "talkative", but feels this is genuine and "upbeat" as opposed to behavior more suggestive of activation. Pt states she called her mother last evening and attempted a conversation to share her needs regarding language, "I asked her not to use the work 'skinny' but instead call me 'healthy', things like that." Pt admits she then felt bad and apologized to her mother, feeling she was implying she wasn't a good mom. Pt states this was upsetting to her last evening and she was tearful. Pt states, "I could tell the difference though. The tears weren't my depression, I was actually feeling sad." Pt sees this as a positive that she was able to differentiate the emotions. Pt reports willingness to involve her roommates in a family meeting, she is still debating if she is agreeable to having one with her parents. Pt denies SI today, but continues to work on communication and identifying emotions. She denies side effects from initiation of fluoxetine. Pt denies other needs or concerns today. Physical Exam Psychiatric Orientation: alert, oriented x 3 and cooperative Apperance: appropriately dressed, appropriately groomed and appeared stated age Eye Contact: good eye contact Motor Behavior: steady gait and station and no abnormal motor movements Speech: normal rate/rhythm/volume of speech Affect: + depressed affect (mildly improved) and + blunted affect Mood: + depressed mood (mild improvement reported, describes mood as "talkative") Thought Process: goal directed thought process, linear/logical thought process and clear/coherent thought process Thought Content: reality based without delusions Suicidal Thoughts: denies suicidal thoughts; + reports suicidal plan (has researched "painless" plans, including OD on narcotics or inhale gas) Homicidal Thoughts: denies homicidal thoughts Hallucinations: no auditory hallucinations and no visual hallucinations Cognition: recent memory grossly intact, remote memory grossly intact, attention grossly intact and language grossly intact Estimated Intelligence: consistent with education level Insight: + fair insight Judgement: + fair judgement Vital Signs (Past 24 Hours) Last Vital Signs Temp 36.6 C 01/07/19 07:05 Pulse 65 01/07/19 07:07 Resp 16 01/07/19 07:05 BP 110/64 01/07/19 07:07 Pulse Ox 95 01/05/19 18:19 Results & Data Current Inpatient Medications Current Inpatient Medications: Current Inpatient Medications Acetaminophen (Tylenol) 650 mg PO Q4H PRN PRN Reason: Headache or Minor Fever Stop: 02/04/19 21:11 Last Admin: 01/07/19 11:10 Dose: 650 mg Documented by: Al Hydrox/Mg Hydrox/Simethicone (Maalox) 30 ml PO Q4H PRN PRN Reason: GI Upset Stop: 02/04/19 21:11 Bismuth Subsalicylate (Kaopectate) 15 ml PO PRN PRN PRN Reason: Loose Stool Stop: 02/04/19 21:11 Fluoxetine HCl (Prozac) 20 mg PO QAM BUD Stop: 02/06/19 08:59 Last Admin: 01/07/19 08:58 Dose: 20 mg Documented by: Hydroxyzine HCl (Vistaril) 50 mg PO HSZ PRN PRN Reason: Insomnia Stop: 02/04/19 21:11 Hydroxyzine HCl (Vistaril) 25 mg PO Q4H PRN PRN Reason: Anxiety Stop: 02/04/19 21:11 Magnesium Hydroxide (Milk Of Magnesia) 30 ml PO DAILY PRN PRN Reason: Heartburn Stop: 02/04/19 21:11 Sodium Chloride ([place] Nasal) 1 - 2 sprays NA PRN PRN PRN Reason: Nasal Dryness/Congestion Stop: 02/04/19 21:11 Post Discharge Appointments Primary Care Physician Name Of Family Doctor: Jackie Soler [place] Therapist Name of Therapist: nicolasa Stevedore Hold Name of Stevedore Hold: nicolasa CPT Code CPT Code 46721 (1) Depression Depression Type: major depressive disorder Major depression episode severity: severe Major depression recurrence: recurrent Psychotic features: without psychotic features
[2019-01-07] MEDS ORDERED: IBUPROFEN 600 MG TAB PO PRN (12:43)
--- NOTE | 2019-01-08 08:31 | Psychiatric Progress Note ---
Date of Service January 08, 2019 Impression / Recommendations Impression Mood is slowly improving, and is benefitting from inpatient treatment. No activation thus far on fluoxetine, but will continue to observe. Remains resistant to involving parents in a family meeting, but did have a meeting with roommates. Suicidal thoughts are improving, and inpatient treatment remains medically necessary due to the risk for suicide if discharged prematurely. (1) Suicidal ideation: 01/06 - Admitted to a locked inpatient behavioral health unit, on q15 minute safety checks - Encourage medication initiation/adjustments as indicated - Encourage participation in group and recreational therapies - Gather collateral information from outpatient providers - Suggest family meeting to involve outpatient supports in safety planning - Arrange appropriate aftercare 01/08 - Referred to [place] and individual therapy (2) Depression: 01/06 - Initiate fluoxetine 20mg one dose now, 20mg qAM scheduled starting tomorrow morning. Titrate as needed/tolerated - Will need referral to outpatient providers following discharge - Identify supports to involve in treatment and discharge planning 01/07 - Continue current medication regimen, consider titration of fluoxetine if continues to tolerate - Willing for meeting with roommates, unsure if agreeable to a meeting with her parents at this time - Will require outpatient providers for therapy and medication management 01/08 - Continue fluoxetine 20mg daily, as she is reporting positive response and tolerating well. Continue to monitor for activation/destabilization. - Had meeting with 3 roommates, who are supportive. - Refer for aftercare. (3) Disordered eatin/28 - pt admits to several days of restriction at a time, associated with small windows of nutritional intake, often to the point of binging - observe eating habits on the unit with encouragement to eat regularly throughout the day - no recent history of purging, so will not order for room to be locked at this time 01/07 - Pt reported to be eating meals regularly on the unit, no evidence of disordered eating behavior observed 01/08 - Patient eating well here, but reports concern that she will return to previous unhealthy eating habits upon discharge. Encourage OP f/u at [facility] eating disorder program, or at the very least, a resident manager. Continue with motivational interviewing. Inventory Assets Strengths: willingness for treatment, supportive roommates Needs: medication and therapeutic interventions to improve mood, development of healthy and effective coping strategies Risk Factors Assessment Male: No : No Do You Have Access To A Gun?: No Health Problems: No Mental Health Diagnoses: No (none prior to admission) Substance Use Disorders: No Previous Attempt: No Family History of Suicide: No Previous Psychiatric Hospitalization: No Hopelessness: Yes Smoker: No Protective Factors Assessment Jainism Beliefs: No : No Responsible for Young Children: No Employed: Yes Stable Relationships: No Supportive Family: Yes Interval History Identifying Information ANN-MARIE 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 Chief Complaint "It's less overwhelming". Review of Systems Sleep Information Total Hours of Sleep: 7 Sleep Comments: pt on q-15 minute checks Meal Information Percent Meal Consumed - Breakfast: 60 Percent Meal Consumed - Lunch: 100 Percent Meal Consumed - Dinner: 100 Subjective Subjective Patient was seen & assessed and interval progress reviewed with nursing and social work. Staff report she had a meeting with her roommate yesterday, who was supportive, and is unsure whether she will accept a meeting with her parents. On my assessment she reports mood is bit better, she feels less overwhelmed, her thinking is clearer and focus is better. She denies side effects to fluoxetine, including activation, mood destabilization, and elevated mood. Denies racing thoughts and decreased sleep. SI has improved, "but still not having thoughts that I want to live." She is working on this, and found writing down affirmations was helpful. She thinks it has been very helpful to be around peers who understand what she is going through, and would like to find a group setting to continue with after discharge. She has thought about having a meeting with her parents, but wants to wait until they return from their trip to [facility], and doesn't feel ready to talk to them yet. She continues to struggle with restricting her food, noting use of various diets (eating only a bad of vegetables daily), but has been eating better here since meals are prepared and served to her 3 times daily. She notes chronic low self esteem and would like to work on that as well. Physical Exam Psychiatric Orientation: alert, oriented x 3 and cooperative Apperance: appropriately dressed, appropriately groomed and appeared stated age Eye Contact: good eye contact Motor Behavior: steady gait and station and no abnormal motor movements Speech: normal rate/rhythm/volume of speech Affect: + depressed affect (but reactive, appropriate) Mood: + depressed mood (but improved from admission) Thought Process: linear/logical thought process Thought Content: reality based without delusions Suicidal Thoughts: + reports suicidal thoughts Homicidal Thoughts: denies homicidal thoughts Hallucinations: no auditory hallucinations Cognition: recent memory grossly intact, attention grossly intact and language grossly intact Estimated Intelligence: consistent with education level Insight: good insight Judgement: good judgement Vital Signs (Past 24 Hours) Last Vital Signs Temp 36.6 C 01/08/19 06:53 Pulse 103 H 01/08/19 06:54 Resp 16 01/08/19 06:53 BP 105/68 01/08/19 06:54 Pulse Ox 95 01/05/19 18:19 Results & Data Current Inpatient Medications Current Inpatient Medications: Current Inpatient Medications Acetaminophen (Tylenol) 650 mg PO Q4H PRN PRN Reason: Headache or Minor Fever Stop: 02/04/19 21:11 Last Admin: 01/07/19 11:10 Dose: 650 mg Documented by: Al Hydrox/Mg Hydrox/Simethicone (Maalox) 30 ml PO Q4H PRN PRN Reason: GI Upset Stop: 02/04/19 21:11 Bismuth Subsalicylate (Kaopectate) 15 ml PO PRN PRN PRN Reason: Loose Stool Stop: 02/04/19 21:11 Fluoxetine HCl (Prozac) 20 mg PO QAM BUD Stop: 02/06/19 08:59 Last Admin: 01/07/19 08:58 Dose: 20 mg Documented by: Hydroxyzine HCl (Vistaril) 50 mg PO HSZ PRN PRN Reason: Insomnia Stop: 02/04/19 21:11 Hydroxyzine HCl (Vistaril) 25 mg PO Q4H PRN PRN Reason: Anxiety Stop: 02/04/19 21:11 Ibuprofen (Motrin) 600 mg PO Q6H PRN PRN Reason: Pain Stop: 02/06/19 12:42 Magnesium Hydroxide (Milk Of Magnesia) 30 ml PO DAILY PRN PRN Reason: Heartburn Stop: 02/04/19 21:11 Sodium Chloride ([place] Nasal) 1 - 2 sprays NA PRN PRN PRN Reason: Nasal Dryness/Congestion Stop: 02/04/19 21:11 Post Discharge Appointments Primary Care Physician Name Of Family Doctor: Pediatric Jackie Bedolla [place] Psychiatrist Name of Psychiatrist: Adonis Potter Psychiatrist's Date of Appointment with Psychiatrist: 01/12/19 Time of Appointment with Psychiatrist: 3pm Psychiatric Appointment Comment: [address] [facility] [place] [address] Therapist Name of Therapist: Brianda Sheehan, PhD - called to start referral Therapist's Therapy Appointment Comment: [address] [place] [address] Sand Molder Name of Sand Molder: denies CPT Code CPT Code 28146 (1) Depression Depression Type: major depressive disorder Major depression episode severity: severe Major depression recurrence: recurrent Psychotic features: without psychotic features
[2019-01-08] MEDS: FLUOXETINE HCL 20 MG CAP PO SCH (09:50)
--- NOTE | 2019-01-09 08:29 | Psychiatric Progress Note ---
Date of Service January 09, 2019 Impression / Recommendations Impression Mood plateaued and still depressed, and unfortunately is unwilling to allow involvement of parents, although reports they know she is here and are very concerned about her. She i actively participating in treatment, tolerating medication, and willing for referrals for OP treatment. No activation thus far on fluoxetine. Inpatient treatment remains medically necessary due to the risk for suicide if discharged prematurely. (1) Suicidal ideation: 01/06 - Admitted to a locked inpatient behavioral health unit, on q15 minute safety checks - Encourage medication initiation/adjustments as indicated - Encourage participation in group and recreational therapies - Gather collateral information from outpatient providers - Suggest family meeting to involve outpatient supports in safety planning - Arrange appropriate aftercare 01/08 - Referred to [place] and individual therapy 01/09 - SI resolving, working on discharge safety plan to involve roommates. (2) Depression: 01/06 - Initiate fluoxetine 20mg one dose now, 20mg qAM scheduled starting tomorrow morning. Titrate as needed/tolerated - Will need referral to outpatient providers following discharge - Identify supports to involve in treatment and discharge planning 01/07 - Continue current medication regimen, consider titration of fluoxetine if continues to tolerate - Willing for meeting with roommates, unsure if agreeable to a meeting with her parents at this time - Will require outpatient providers for therapy and medication management 01/08 - Continue fluoxetine 20mg daily, as she is reporting positive response and tolerating well. Continue to monitor for activation/destabilization. - Had meeting with 3 roommates, who are supportive. - Refer for aftercare. 01/09 - Continue fluoxetine and refer for OP care. (3) Disordered eatin/28 - pt admits to several days of restriction at a time, associated with small windows of nutritional intake, often to the point of binging - observe eating habits on the unit with encouragement to eat regularly throughout the day - no recent history of purging, so will not order for room to be locked at this time 01/07 - Pt reported to be eating meals regularly on the unit, no evidence of disordered eating behavior observed 01/08 - Patient eating well here, but reports concern that she will return to previous unhealthy eating habits upon discharge. Encourage OP f/u at [facility] eating disorder program, or at the very least, a master police detective. Continue with motivatio nal interviewing. Inventory Assets Strengths: willingness for treatment, supportive roommates Needs: medication and therapeutic interventions to improve mood, development of healthy and effective coping strategies Risk Factors Assessment Male: No : No Do You Have Access To A Gun?: No Health Problems: No Mental Health Diagnoses: No (none prior to admission) Substance Use Disorders: No Previous Attempt: No Family History of Suicide: No Previous Psychiatric Hospitalization: No Hopelessness: Yes Smoker: No Protective Factors Assessment Sabianism Beliefs: No : No Responsible for Young Children: No Employed: Yes Stable Relationships: No Supportive Family: Yes Interval History Identifying Information 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 Chief Complaint "Shona the same, mood-wilson". Review of Systems Sleep Information Total Hours of Sleep: 8 Sleep Comments: pt on q-15 minute checks Meal Information Percent Meal Consumed - Breakfast: 30 Percent Meal Consumed - Lunch: 70 Percent Meal Consumed - Dinner: 70 Subjective Subjective Patient was seen & assessed and interval progress reviewed with nursing and soci al work. Staff report she is going to groups and participating. On my assessment, she reports mood is "the same, shona worried," as her brother visited last night and told her that her parents were "really worried." She did talk to them on the phone and felt it was stressful, as they were emotional and upset, so has tried to limit her interactions with them to 5-10 minutes. She continues to refuse a family meeting with them, stating she wants to talk to them later, once she is discharged and they are back from [facility]. She denies SI, and continues to struggle with sleep, and feels tired today although she slept well last night. She reports "cabin fever, I want fresh air, antsy, want to go home." Physical Exam Psychiatric Orientation: alert and cooperative Apperance: appropriately dressed, appropriately groomed and appeared stated age Eye Contact: good eye contact Motor Behavior: steady gait and station and no abnormal motor movements Speech: normal rate/rhythm/volume of speech Affect: + depressed affect Mood: + depressed mood Thought Process: goal directed thought process Thought Content: reality based without delusions Suicidal Thoughts: denies suicidal thoughts Homicidal Thoughts: denies homicidal thoughts Hallucinations: no auditory hallucinations Cognition: recent memory grossly intact, attention grossly intact and language grossly intact Estimated Intelligence: consistent with education level Insight: + fair insight Judgement: + fair judgement Vital Signs (Past 24 Hours) Last Vital Signs Temp 36.8 C 01/09/19 07:01 Pulse 74 01/09/19 07:02 Resp 16 01/09/19 07:01 BP 109/70 01/09/19 07:02 Pulse Ox 95 01/05/19 18:19 Results & Data Current Inpatient Medications Current Inpatient Medications: Current Inpatient Medications Acetaminophen (Tylenol) 650 mg PO Q4H PRN PRN Reason: Headache or Minor Fever Stop: 02/04/19 21:11 Last Admin: 01/07/19 11:10 Dose: 650 mg Documented by: Al Hydrox/Mg Hydrox/Simethicone (Maalox) 30 ml PO Q4H PRN PRN Reason: GI Upset Stop: 02/04/19 21:11 Bismuth Subsalicylate (Kaopectate) 15 ml PO PRN PRN PRN Reason: Loose Stool Stop: 02/04/19 21:11 Fluoxetine HCl (Prozac) 20 mg PO QAM BUD Stop: 02/06/19 08:59 Last Admin: 01/08/19 09:50 Dose: 20 mg Documented by: Hydroxyzine HCl (Vistaril) 50 mg PO HSZ PRN PRN Reason: Insomnia Stop: 02/04/19 21:11 Hydroxyzine HCl (Vistaril) 25 mg PO Q4H PRN PRN Reason: Anxiety Stop: 02/04/19 21:11 Ibuprofen (Motrin) 600 mg PO Q6H PRN PRN Reason: Pain Stop: 02/06/19 12:42 Magnesium Hydroxide (Milk Of Magnesia) 30 ml PO DAILY PRN PRN Reason: Heartburn Stop: 02/04/19 21:11 Sodium Chloride ([place] Nasal) 1 - 2 sprays NA PRN PRN PRN Reason: Nasal Dryness/Congestion Stop: 02/04/19 21:11 Post Discharge Appointments Primary Care Physician Name Of Family Doctor: Pediatric Jackie Bedolla [place] Psychiatrist Name of Psychiatrist: Adonis Potter Psychiatrist's Date of Appointment with Psychiatrist: 01/12/19 Time of Appointment with Psychiatrist: 3pm Psychiatric Appointment Comment: [address] , [place] [address] Therapist Name of Therapist: Brianda Sheehan, PhD - called to start referral Therapist's Therapy Appointment Comment: [address] [place] [address] Ems Manager Name of Ems Manager: denies CPT Code CPT Code 27680 (1) Depression Depression Type: major depressive disorder Major depression episode severity: severe Major depression recurrence: recurrent Psychotic features: without psychotic features
[2019-01-09] MEDS: FLUOXETINE HCL 20 MG CAP PO SCH (09:32)
[2019-01-10] MEDS: FLUOXETINE HCL 20 MG CAP PO SCH (08:15)
--- NOTE | 2019-01-10 09:22 | Discharge Summary ---
Date of Service January 10, 2019 History of Present Illness Jayashree Arnett is a 18-year-old female [employer] Sophomore who was admitted voluntarily for inpatient psychiatric treatment upon recommendation from staff at [facility]. Pt reports having called [facility] yesterday to report worsening depression and SI. After her initial assessment, an in person interview was completed. Pt was then encouraged to consider inpatient treatment due to severity of condition. Pt was agreeable and brought to the ED by police voluntarily. Pt states she has called [facility] for an appointment "5 times before", but had always cancelled her appointments due to "I start feeling better, I think I don't need it anymore." Pt states, "It went from only me knowing, keeping it to myself, to two people, and now a lot more." Pt reports depressive symptoms for the past 6 years. The last 2 years her symptoms have become, "more consistent, more life concerning." Pt admits that for the past two years she has been researching ways to end her life painlessly. She admits to doing this "under the influence of my depressive episode." She denies any acts of furtherance before the depressive episode resolves. Pt states that her suicidality since the beginning of the school year has been "a consistent thought. I can be content and with my family or friends and still think, 'what if I wasn't here?'" Pt reports, "a normal mood for me is 'somber', it takes a catalyst for me to be happy." Pt reports depressive symptoms of low mood, decreased energy, limited motivation beyond going to classes, and increased desire to sleep and retreat to bed. She admits to more frequent headaches, difficulty concentrating and tension as well. During these episodes, the patient states she has "involuntary self harm behaviors" such has banging her head off of finnegan, using sharp tweezers to scratch her skin "but so it doesn't leave a yue", or choking herself until the point just prior to asphyxiation. Depressive episodes are accompanied by irritability and occasional hopelessness. Pt does not report symptoms consistent with a clear bipolar presentation, but does admit to "really rare" phases of "offering to do things for people and spreading myself too thin", excessive spending, and an episode of "signing up to join 3 intramural teams all on the same day." These phases last "maybe a few hours, but something really little always triggers me back down." Pt denies any clinically significant symptoms of anxiety or panic. She does report a significant history and active behaviors of "binging and starving myself". Pt states she is consistently on a diet to restrict herself - often for 2 days at a time, reporting her longest period of restriction to be 7 days. Pt states she takes "intermittent fasting to the extreme", often only eating between 6-8pm." When patient does permit herself to eat, she often binges with a large meal. She admits to a history of purging behavior, but with no episodes in the past year. Pt denies HI, A/V hallucinations, paranoia, OCD, PTSD, and other specific psy chiatric symptoms. Physical Exam Mental Examination WNWD female appearing stated age. Casually dressed with good grooming and hygiene. Seated in NAD, with good eye contact and no abnormal movements. Calm, cooperative, and pleasant. Speech is spontaneous, normal rate, volume and tone. Mood is "pretty good, excited," and affect is euthymic, stable, and congruent. Thoughts are linear, logical and goal directed. No SI, HI, hallucinations or paranoia. Alert and oriented. Insight and judgment are intact. Vital Signs (Past 24 Hours) Last Vital Signs Temp 36.9 C 01/10/19 07:03 Pulse 79 01/10/19 07:04 Resp 16 01/10/19 07:03 BP 104/64 01/10/19 07:04 Pulse Ox 95 01/05/19 18:19 Principal Diagnosis Major depressive disorder, recurrent, severe without psychosis Eating disorder not otherwise specified, with episodic restricting, fad diets, and normal BMI Psychiatric Data The patient was hospitalized on our unit for 5 days. On admission, she was started on fluoxetine 20 mg daily, which she tolerated well. She was monitored for activation/destabilization of mood, which was not observed to be present. She actively participated in groups and therapy, and interacted appropriately with staff and peers, and perform to ADLs independently. She was noted to eat well on the unit, but said this was because the food was prepared for her daily, and feared she would return to her unhealthy eating habits at home. She was encouraged to accept a referral for outpatient eating disorder treatment, but was unsure if she was ready to engage in that and work on changing her behaviors. She was given information about the nutrition clinic at [facility] as well as groups on campus, and encouraged to follow up with them. She declined a family meeting with her parents, although she was encouraged to involve them in treatment throughout her stay, did not agree to do so. She said that she spoke with them by phone, as they were on vacation out of the country, and that they were aware she was in the hospital, and she planned to talk with them about her mental health issues after they returned. She did agree to a family meeting with her 3 roommates, whom she stated are her primary supports. They met with the patient and the social group worker on 01/07/2019, and she was able to share her difficulties with depression and anxiety. They requested that she communicate more openly with them, and talked about ways they could help support the patient. They discussed warning signs of worsening mood and her safety plan for times when she has urges to self injure or thoughts of suicide. They also discussed crisis options in the community. The patient reported improvement of mood, resolution of suicidal thoughts and thoughts to harm herself, and was referred for outpatient psychiatric care and therapy. Day of Discharge Assessment Patient reports her mood is "pretty good, excited," and she is looking forward to getting out of the hospital and "getting some fresh air." She denies side effects to the fluoxetine, and asked multiple appropriate questions about the medication. She feels treatment has been helpful, but says she is getting "cabin fever" from being inside for 5 days, and is looking forward to discharge, being able to go outside, and returning to school and her social life. She is able to review her safety plan, and identify coping skills that she has found helpful here. Transition of Care Transition Of Care Record: was reviewed with the patient Advance Directives Advance Directives Information Provided: Yes Advance Directives: No Mental Health Advance Directive: No Advance Directives on File: No Living Will: No Power of Picker / Packer: No Advance Directives Reason:: Declines as Mental Health Visit. Risk Factors Assessment Risk factors were mitigated by admission to the inpatient unit, use of medications to target mood and anxiety symptoms, psychoeducation about her diagnoses and treatment recommendations, education regarding the importance of good nutrition for optimal functioning and mood, offered to refer her for eating disorder treatment (she ultimately accepted contact information for treatment options on campus), involvement in groups and therapy, working on healthy coping skills and a discharge safety plan, referring her for outpatient psychiatric care and therapy, a family meeting with her roommates, and offering a family meeting with her parents, which she declined. She has demonstrated improvement in mood, is eating and sleeping well on the unit, tolerating medications without difficulty, and consistently denying thoughts of harming herself. She has not engaged in self-injurious behavior here, and is able to review her discharge safety plan. She is requesting discharge, and as she is no longer at acute risk of harm to herself, can be managed as an outpatient at this time. She does not have risk factors for harm to others. Male: No : No Do You Have Access To A Gun?: No Health Problems: No Mental Health Diagnoses: Yes Substance Use Disorders: No Previous Attempt: No Family History of Suicide: No Previous Psychiatric Hospitalization: No Hopelessness: No Smoker: No Protective Factors Assessment Moravian Beliefs: No : No Responsible for Young Children: No Employed: Yes Stable Relationships: No Supportive Family: Yes Tobacco Cessation at Discharge Tobacco Cessation Medication Prescribed at Discharge: Not Applicable/Non-Smoker Total Time Total Time Spent: Greater Than 30 Minutes Total Time Includes: Examination of the patient, Discharge Planning and Medication Reconciliation Discharge Data Lab Results 01/05/19 01/05/19 01/05/19 17:29 17:29 17:29 WBC RBC Hgb Hct MCV MCH MCHC RDW Std Deviation RDW Coeff of Lida Plt Count MPV Immature Gran % (Auto) Neut % (Auto) Lymph % (Auto) [place] % (Auto) Eos % (Auto) Baso % (Auto) Immature Gran # (Auto) Neut # (Auto) Lymph # (Auto) [place] # (Auto) Eos # (Auto) Baso # (Auto) Sodium Potassium Chloride Carbon Dioxide Anion Gap BUN Creatinine Est Cr Clr Drug Dosing Est GFR ( Amer) Est GFR (Non-Af Amer) BUN/Creatinine Ratio Glucose Calcium Total Bilirubin AST ALT Alkaline Phosphatase Total Protein Albumin Globulin Albumin/Globulin Ratio TSH Urine Color Yellow Urine Appearance Clear Urine pH 6.0 Ur Specific Blanch 1.017 Urine Protein Negative Urine Glucose (UA) Negative Urine Ketones 1+ H Urine Blood Trace H Urine Nitrite Negative Urine Bilirubin Negative Urine Urobilinogen Negative Ur Leukocyte Esterase Negative Urine WBC (Auto) 0 Urine RBC (Auto) 0-4 U Hyaline Cast (Auto) 0 U Epithel Cells (Auto) 10-20 H Urine Bacteria (Auto) Negative POC Ur Test NEG Salicylates Urine Opiates Screen Neg Ur Methadone, Qual Neg Acetaminophen Urine Barbiturates Neg Ur Phencyclidine (PCP) Neg U Amphetamin/Meth Scrn Neg MDMA (Ecstasy) Screen Neg U Benzodiazepines Scrn Neg Ur Cocaine Metabolite Neg U Marijuana (THC) Screen Neg Ethyl Alcohol mg/dL 01/05/19 01/05/19 01/05/19 17:55 17:55 17:55 WBC 7.45 RBC 4.45 Hgb 14.1 Hct 40.1 MCV 90.1 MCH 31.7 MCHC 35.2 RDW Std Deviation 43.5 RDW Coeff of Lida 13.1 Plt Count 194 MPV 10.9 H Immature Gran % (Auto) 0.1 Neut % (Auto) 78.9 Lymph % (Auto) 14.0 [place] % (Auto) 6.3 Eos % (Auto) 0.4 Baso % (Auto) 0.3 Immature Gran # (Auto) 0.01 Neut # (Auto) 5.88 Lymph # (Auto) 1.04 L [place] # (Auto) 0.47 Eos # (Auto) 0.03 Baso # (Auto) 0.02 Sodium 139 Potassium 3.8 Chloride 109 H Carbon Dioxide 23 Anion Gap 7.0 BUN 12 Creatinine 0.95 Est Cr Clr Drug Dosing 85.0 Est GFR ( Amer) 99.9 Est GFR (Non-Af Amer) 86.2 BUN/Creatinine Ratio 12.3 Glucose 85 Calcium 9.6 Total Bilirubin 0.3 AST 20 ALT 17 Alkaline Phosphatase 48 Total Protein 8.5 H Albumin 4.5 Globulin 4.0 Albumin/Globulin Ratio 1.1 TSH 1.240 Urine Color Urine Appearance Urine pH Ur Specific Blanch Urine Protein Urine Glucose (UA) Urine Ketones Urine Blood Urine Nitrite Urine Bilirubin Urine Urobilinogen Ur Leukocyte Esterase Urine WBC (Auto) Urine RBC (Auto) U Hyaline Cast (Auto) U Epithel Cells (Auto) Urine Bacteria (Auto) POC Ur Test Salicylates 2.1 L Urine Opiates Screen Ur Methadone, Qual Acetaminophen < 2 L Urine Barbiturates Ur Phencyclidine (PCP) U Amphetamin/Meth Scrn MDMA (Ecstasy) Screen U Benzodiazepines Scrn Ur Cocaine Metabolite U Marijuana (THC) Screen Ethyl Alcohol mg/dL 01/05/19 17:55 WBC RBC Hgb Hct MCV MCH MCHC RDW Std Deviation RDW Coeff of Lida Plt Count MPV Immature Gran % (Auto) Neut % (Auto) Lymph % (Auto) [place] % (Auto) Eos % (Auto) Baso % (Auto) Immature Gran # (Auto) Neut # (Auto) Lymph # (Auto) [place] # (Auto) Eos # (Auto) Baso # (Auto) Sodium Potassium Chloride Carbon Dioxide Anion Gap BUN Creatinine Est Cr Clr Drug Dosing Est GFR ( Amer) Est GFR (Non-Af Amer) BUN/Creatinine Ratio Glucose Calcium Total Bilirubin AST ALT Alkaline Phosphatase Total Protein Albumin Globulin Albumin/Globulin Ratio TSH Urine Color Urine Appearance Urine pH Ur Specific Blanch Urine Protein Urine Glucose (UA) Urine Ketones Urine Blood Urine Nitrite Urine Bilirubin Urine Urobilinogen Ur Leukocyte Esterase Urine WBC (Auto) Urine RBC (Auto) U Hyaline Cast (Auto) U Epithel Cells (Auto) Urine Bacteria (Auto) POC Ur Test Salicylates Urine Opiates Screen Ur Methadone, Qual Acetaminophen Urine Barbiturates Ur Phencyclidine (PCP) U Amphetamin/Meth Scrn MDMA (Ecstasy) Screen U Benzodiazepines Scrn Ur Cocaine Metabolite U Marijuana (THC) Screen Ethyl Alcohol mg/dL < 3.0 Hospital Course (1) Suicidal ideation: 01/06 - Admitted to a locked inpatient behavioral health unit, on q15 minute safety checks - Encourage medication initiation/adjustments as indicated - Encourage participation in group and recreational therapies - Gather collateral information from outpatient providers - Suggest family meeting to involve outpatient supports in safety planning - Arrange appropriate aftercare 01/08 - Referred to [facility] and individual therapy 01/09 - SI resolving, working on discharge safety plan to involve roommates. (2) Depression: 01/06 - Initiate fluoxetine 20mg one dose now, 20mg qAM scheduled starting tomorrow morning. Titrate as needed/tolerated - Will need referral to outpatient providers following discharge - Identify supports to involve in treatment and discharge planning 01/07 - Continue current medication regimen, consider titration of fluoxetine if continues to tolerate - Willing for meeting with roommates, unsure if agreeable to a meeting with her parents at this time - Will require outpatient providers for therapy and medication management 01/08 - Continue fluoxetine 20mg daily, as she is reporting positive response and tolerating well. Continue to monitor for activation/destabilization. - Had meeting with 3 roommates, who are supportive. - Refer for aftercare. 01/09 - Continue fluoxetine and refer for OP care. (3) Disordered eatin/28 - pt admits to several days of restriction at a time, associated with small windows of nutritional intake, often to the point of binging - observe eating habits on the unit with encouragement to eat regularly throughout the day - no recent history of purging, so will not order for room to be locked at this time 01/07 - Pt reported to be eating meals regularly on the unit, no evidence of disordered eating behavior observed 01/08 - Patient eating well here, but reports concern that she will return to previous unhealthy eating habits upon discharge. Encourage OP f/u at [facility] eating disorder program, or at the very least, a enterprise application architect. Continue with motivational interviewing. Post Discharge Appointments Primary Care Physician Name Of Family Doctor: [facility] - follow up as needed Provider Appointment Comment: [facility] [place] Psychiatrist Name of Psychiatrist: Adonis Pryor - [facility] Psych[facility]rist's Date of Appointment with Psychiatrist: 01/12/19 Time of Appointment with Psychiatrist: 3 pm Psychiatric Appointment Comment: [address] [place] [address] Therapist Name of Therapist: Brianda Sheehan, PhD - called to start referral Therapist's Therapy Appointment Comment: [address] [place] [address] [facility] Name of [facility]: [facility] Banegas Phone Number for [facility]: [phone] Date of Appointment with [facility]: 01/11/19 Time of Appointment with [facility]: 12:00 p.m. Case Management Appointment Comment: [address] [facility] Smoking Cessation Counseling Tobacco Cessation Medication Prescribed at Discharge: Not Applicable/Non-Smoker Contact Information Discharge Discharge Address: [address] [id number], [place] [address] Discharge Plan Discharge Items Patient Disposition: Home - Self-Care Reason For Visit: MAJOR DEPRESSIVE DISORDER Discharge Diagnosis: Major depressive disorder Discharge Goals: Decrease discomfort, Diagnostic testing, Improve disease contro l, Improve function, Improve nutritional status, Learn about illness and Therapeutic intervention Activity: Per 'Additional Instructions' section Non-emergency contact: Psychiatrist and Therapist Call non-emergency contact if: you have any medication questions and your symptoms worsen Follow-up/Referrals: [facility] [Primary Care Provider] - Diet: Regular Addtl Provider Instructions: SPECIAL CARE INSTRUCTIONS: 1. Follow through with your scheduled aftercare appointments. If unable to keep an appointment, please call to reschedule. 2. Take your medication only as prescribed. Medication should not be changed or stopped without the approval of your doctor. In the event of worsening symptoms or concerns about side effects, contact your doctor immediately. 3. Utilize new healthy coping skills, anger management skills, and stress management skills learned during your hospitalization. Journal feelings and process them with a support person. Identify stressors or situations that may result in relapse, deterioration or inappropriate behaviors and develop a plan to deal with those issues. 4. If your coping skills are ineffective and you are in crisis, contact your outpatient providers for direction. If unable to reach your providers, please call the CAN HELP LINE AT or go to the closest Emergency Room. 5. Avoid alcohol and un-prescribed drugs. 6. You have been provided with the Mental Health Advance Directives Pamphlet for your review. AFTERCARE APPOINTMENTS: * Please call your insurance company prior to your scheduled appointment to confirm your aftercare providers are covered. Take your insurance information to your appointments. WHO TO CALL AND WHEN: Medical Emergencies: For questions or emergencies related to your hospital stay, please contact the Inpatient Behavioral Health Unit at [phone]. A supervisor putty and caluking is on-call 04/05 for the Behavioral Health Unit for emergencies At any time you feel your situation is an emergency, you may also call 911 immediately. Your Doctors Instructions noted above were prepared by provider Xiomara Malcolm MD. Prescriptions: New fluoxetine 20 mg capsule 20 mg PO DAILY Qty: 30 RF: 0 No Action No Known Home Medications RF: 0 Stand-Alone Forms: Community In[employer]/Other Patient Handouts: Depression Know Signs Sx Discharge Orders: Discharge Order (Routine); Ordered 01/10/19 Ordered By: Xiomara Malcolm Admission Data Admit Date/Time: 01/05/19 21:12 Attending Provider: Xiomara Malcolm Admit Provider: Santi Le Primary Care Provider: [facility] Service: Psychiatry Other Interventions: Discharge Summary Assessment (RN) Last Done: 01/10/19 09:22 PSY Interdisciplinary Discharge Planning Last Done: 01/10/19 09:21 Pending Studies at Discharge: No
== END 2019-01-10 10:50 | disposition home or self-care (01) | DRG 885 ==
LOC: ED 16:23 → 3S 21:01